=== PATIENT | male | born 1975 | race African-American/Black ===

== ENCOUNTER 2024-09-06 12:34 | Emergency (ER) | payer SELFPAY ==
[2024-09-06] MEDS: Ketorolac 30 MG/ML SDV IM ONE (14:17)
[2024-09-06] MEDS: Orphenadrine 60 MG/2 ML Inj IM ONE (14:18)
[2024-09-06] MEDS: Lidocaine 4% Patch TOP STA (15:05)
== END 2024-09-06 15:20 | disposition home or self-care (01) ==
LOC: MW.ED 12:34
DX: M54.30 Sciatica, unspecified side (principal); Z75.8 Other problems related to medical facilities and other health care; Z79.899 Other long term (current) drug therapy
CPT/HCPCS: 72100; 96372; 99283; A9270; J1885; J2360